=== PATIENT | male | born 1950 | race Caucasian/White ===

== ENCOUNTER → 2024-01-17 | Outpatient (CLI) | payer MEDICARE, SELFPAY | END | disposition home or self-care (01) | PROVIDERS: PCP Family Medicine; Referring Provider Podiatrist; Visit Provider Podiatrist | DX: R20.2 Paresthesia of skin (principal) | CPT/HCPCS: 95886; 95911 ==

== ENCOUNTER 2024-11-20 12:00 | Day surgery (SDC) | payer MEDICARE, SELFPAY ==
--- NOTE | 2024-11-18 14:14 | PAT.ANE_ITS ---
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 When Was Last Pacemaker Check QUESTION #4 FULL TEXT: You/Your Family Experience fever (hyperthermia) with Anesthesia Last Oral Intake Last Oral intake: Last Oral Intake NPO since Meds taken in AM with sips of water? Meds patient instructed to take am of surgery PONV PONV - reservations manager: PONV - reservations manager Female No 11/18/24 11:16 HX of Motion Sickness No 11/18/24 11:16 HX of N/V After Surgery No 11/18/24 11:16 Non-Smoker Yes 11/18/24 11:16 Duration of Surgery greater No 11/18/24 11:16 than 60 minutes Number of Risk Factors 1 11/18/24 11:16 PONV Score Low Risk 11/18/24 11:16 Height & Weight Height & Weight: Anesthesia: Height & Weight Height 5 ft 10 in 06/07/24 10:33 Respiratory Assessment Respiratory Assessment - reservations manager: Respiratory Tract Infection Hx - reservations manager Hx Respiratory Tract Infection No 11/18/24 11:16 STOP Sleep Apnea STOP Sleep Apnea - reservations manager: STOP Sleep Apnea - reservations manager Hx Hypertension No 11/18/24 11:16 Hx Sleep Apnea No 11/18/24 11:16 CPAP BIPAP Do you snore loudly (louder No 11/18/24 11:16 than talking or can be heard Do you often feel tired/ No 11/18/24 11:16 fatigued/ sleepy during daytime? Has anyone observed you stop No 11/18/24 11:16 breathing during sleep? STOP Results Negative 11/18/24 11:16 QUESTION #5 FULL TEXT : Do you snore loudly (louder than talking or can be heard through closed doors)? 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 Specify any problems Hx of Preganancy in last 3 N/A 11/18/24 11:16 Months Nurse Filling Out Transfusion VCHRISTIN 11/18/24 11:16 & Questions: Date: 11/18/24 11/18/24 11:16 Time: 11:17 11/18/24 11:16 Patient unable to answer at this time (ie. confused, unrespo /Reproduction History /Reproductive History - reservations manager: /Reproductive Hx- reservations manager Hx Now No 11/18/24 11:16 Gestational Age (in weeks): EDC: Hx Hx Para Hx Section SAB No 11/18/24 11:16 [facility] Medical History (Updated 11/18/24 @ 11:16 by Claire Whitt) Wears glasses Cancer Depression Alcohol use Thyroid disease Arthritis High cholesterol Difficulty swallowing Former smoker History of pain when walking History of echocardiogram History of stress test Melanoma Neuropathy Home Medications ?Medication ?Instructions ?Recorded ?Last Taken ?Type duloxetine 30 mg capsule,delayed 30 mg PO BID 06/07/24 Unknown History release ezetimibe 10 mg tablet 10 mg PO QDAY 06/07/24 Unkno wn History levothyroxine 50 mcg tablet 50 mcg PO QDAY 06/07/24 Un known History tramadol 50 mg tablet 50 mg PO Q4-6H PRN pain 05/12 11/04 Unknown History etodolac 500 mg tablet 500 mg PO BID PRN pain 11/18 Unknown History latanoprost 0.005 % eye drops 1 drp ophthalmic (eye) D AILY 11/18/24 Unknown History Allergy/AdvReac Type Severity Reaction Status Date / Time No Known Allergies Allergy Verified 11/18/24 11:03 Family History Mother No problems noted. Father Cancer Throat cancer Grandmother No problems noted. Grandfather No problems noted. Surgical History (Updated 11/18/24 @ 11:16 by Claire Whitt) Hx of tonsillectomy H/O lateral meniscus repair of right knee History of total right hip replacement Social History Smoking Status: Former smoker Smokeless tobacco user: chewing tobacco alcohol intake: current alcohol intake frequency: holidays/special occasions only Audit: Pertinent Findings Pertinent Findings Stress test pertinent findings: Stress test 12/05/2023. Nuclear stress test showed no conclusive evidence of reversible ischemia or infarct. Calculated EF is 57% with normal wall motion Recommendation Anesthesia Recommendation Anesthesia recommendation: OPTIMIZED for anesthesia
[2024-11-20] VITALS (9 sets, daily range): BP systolic 80–142; BP diastolic 56–91; PULSE 59–68; RESP 16–17; TEMP 36.3–36.6; O2SAT 96–99; BMI 30.4
[2024-11-20] MEDS: Lactated Ringers 1,000 ML 15 ML IV (12:36)
--- NOTE | 2024-11-20 12:49 | PRE.ANES_ITS ---
ASA Classification* ASA Classification ASA Classification: 2 Assessment & Plan Anesthesia* Anesthesia Assessment Anesthesia Assessment: Discussed sedation and/or anesthesia options, risks, benefits, and alternatives with patient/parents/legal guardian/POA. Questions invited. The patient/parents/legal guardian/POA seems to understand and agrees to proceed with anesthesia plan. Reviewed the physical assessment, medical history, allergy history and patient home medications list prior to surgery/procedure/anesthetic and documented any changes. Performed airway and anesthesia risk assessments. 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 When Was Last Pacemaker Check QUESTION #4 FULL TEXT: You/Your Family Experience fever (hyperthermia) with Anesthesia Last Oral Intake Last Oral intake: Last Oral Intake NPO since 07:00 11/20/24 12:36 Meds taken in AM with sips of No 11/20/24 12:36 water? Meds patient instructed to take am of surgery PONV PONV - enhanced environmental operator: PONV - enhanced environmental operator Female No 11/18/24 11:16 HX of Motion Sickness No 11/18/24 11:16 HX of N/V After Surgery No 11/18/24 11:16 Non-Smoker Yes 11/18/24 11:16 Duration of Surgery greater No 11/18/24 11:16 than 60 minutes Number of Risk Factors 1 11/18/24 11:16 PONV Score Low Risk 11/18/24 11:16 Height & Weight Height & Weight: Anesthesia: Height & Weight Height 5 ft 11 in 11/20/24 12:36 Weight: 99 kg 11/20/24 12:36 Body Mass Index (BMI) 30.4 11/20/24 12:36 Respiratory Assessment Respiratory Assessment - enhanced environmental operator: Respiratory Tract Infection Hx - enhanced environmental operator Hx Respiratory Tract Infection No 11/18/24 11:16 STOP Sleep Apnea STOP Sleep Apnea - enhanced environmental operator: STOP Sleep Apnea - enhanced environmental operator Hx Hypertension No 11/18/24 11:16 Hx Sleep Apnea No 11/18/24 11:16 CPAP BIPAP Do you snore loudly (louder No 11/18/24 11:16 than talking or can be heard Do you often feel tired/ No 11/18/24 11:16 fatigued/ sleepy during daytime? Has anyone observed you stop No 11/18/24 11:16 breathing during sleep? STOP Results Negative 11/18/24 11:16 QUESTION #5 FULL TEXT : Do you snore loudly (louder than talking or can be heard through closed doors)? Tobacco Use History Tobacco Use History - enhanced environmental operator: Tobacco Use History - enhanced environmental operator Tobacco Use Smoking Status Former smoker 11/18/24 11:16 Hx Tobacco Use No 11/18/24 11:16 Years Smoking Packs Smoked per Day Smoking Cessation Date was No - quit smoking greater 11/18/24 11:16 within the last 15 years than 15 years ago Hx Smoking Cessation Date Hx Smoking Cessation Counseling Hematologic Medial History Hematologic Hx - enhanced environmental operator: Hematologic Medical Hx - supervisor stone Hx of Blood Transfusion No 11/18/24 11:16 Hx of Transfusion in last 3 No 11/18/24 11:16 Months Date of Last Transfusion (if within last 3 months) Ever experience any problems No 11/18/24 11:16 with transfusion(s)? Specify any problems Hx of Preganancy in last 3 N/A 11/18/24 11:16 Months Nurse Filling Out Transfusion VCHRISTIN 11/18/24 11:16 & Questions: Date: 11/18/24 11/18/24 11:16 Time: 11:17 11/18/24 11:16 Patient unable to answer at this time (ie. confused, unrespo /Reproduction History /Reproductive History - enhanced environmental operator: /Reproductive Hx- enhanced environmental operator Hx Now No 11/18/24 11:16 Gestational Age (in weeks): EDC: Hx Hx Para Hx Section SAB No 11/18/24 11:16 Active Medications Active Medications: Current Medications Generic Name Dose Route Start Last Admin Trade Name Freq PRN Reason Stop Dose Admin Lactated Ringer's 1,000 mls @ 15 mls/hr 11/20/24 12:15 11/20/24 12:36 IV 15 mls/hr .Q48H YODRY Administration PFSH Medical History Wears glasses Cancer Depression Alcohol use Thyroid disease Arthritis High cholesterol Difficulty swallowing Former smoker History of pain when walking History of echocardiogram History of stress test Melanoma Neuropathy Home Medications ?Medication ?Instructions ?Recorded ?Last Taken ?Type duloxetine 30 mg capsule,delayed 30 mg PO BID 06/07/24 11/19/24 History release ezetimibe 10 mg tablet 10 mg PO QDAY 06/07/2411/19 History levothyroxine 50 mcg tablet 50 mcg PO QDAY 06/07/24 History tramadol 50 mg tablet 50 mg PO Q4-6H PRN pain 05/1211/20/24 History etodolac 500 mg tablet 500 mg PO BID PRN pain 11/18 Unknown History latanoprost 0.005 % eye drops 1 drp ophthalmic (eye) D AILY 11/18/24 11/19/24 History Allergy/AdvReac Type Severity Reaction Status Date / Time No Known Allergies Allergy Verified 11/20/24 12:35 Family History Mother No problems noted. Father Cancer Throat cancer Grandmother No problems noted. Grandfather No problems noted. Surgical History Hx of tonsillectomy H/O lateral meniscus repair of right knee History of total right hip replacement Social History Smoking Status: Former smoker Smokeless tobacco user: chewing tobacco alcohol intake: current alcohol intake frequency: holidays/special occasions only Review of Systems (Anesthesia) ROS Narrative System reviewed and no additional complaints, except as documented.
--- NOTE | 2024-11-20 13:12 | PCM.HP.STD ---
HPI - General General Date of Admission: 11/20/24 Date of Service: 11/20/24 HPI Narrative FRANK OLMSTEAD, is a 74 M who presentsDAVIMehnaz OLMSTEAD, is a 74 M who presents to the office today for initial consult. Pt reports trouble swallowing. Has had 3 episodes this past summer. States he had a scope with Dr. Delgado Helm 2-3 years ago and a spot was treated in his stomach. Says feed gets stuck and then will have to vomit to get it out. Mostly with meats, and fried foods. Denies heartburn or nausea. BMs are more constipated due to Tramadol use. This has been worsening over the past six months. He describes a sensation of food getting stuck in his chest, typically a few seconds after swallowing. The issue initially occurred with larger, curtain drier pieces of food, such as steak and bread. However, he reports it is now happening with softer foods like chicken and rice. He has not experienced any issues swallowing liquids. Associated symptoms: Occasional regurgitation of undigested food. Has had to chew his food more thoroughly and eat more slowly. Reports an unintentional weight loss of approximately 15 pounds over the past six months. Denies heartburn, chest pain, or hoarseness. [facility] Medical History (Updated 11/20/24 @ 13:[address] Glover Friend, DO) Wears glasses Cancer Depression Alcohol use Thyroid disease Arthritis High cholesterol Difficulty swallowing Former smoker History of pain when walking History of echocardiogram History of stress test Melanoma Neuropathy Home Medications ?Medication ?Instructions ?Recorded ?Last Taken ?Type duloxetine 30 mg capsule,delayed 30 mg PO BID 06/07/24 11/19/24 History release ezetimibe 10 mg tablet 10 mg PO QDAY 06/07/24 11/19/24 History levothyroxine 50 mcg tablet 50 mcg PO QDAY 06/07/24 11/19/24 History tramadol 50 mg tablet 50 mg PO Q4-6H PRN pain 06/07/24 11/20/24 History etodolac 500 mg tablet 500 mg PO BID PRN pain 11/18/24 Unknown History latanoprost 0.005 % eye drops 1 drp ophthalmic (eye) DAILY 11/18/24 11/19/24 History Allergy/AdvReac Type Severity Reaction Status Date / Time No Known Allergies Allergy Verified 11/20/24 12:35 Family History Mother No problems noted. Father Cancer Throat cancer Grandmother No problems noted. Grandfather No problems noted. Surgical History Hx of tonsillectomy H/O lateral meniscus repair of right knee History of total right hip replacement Social History Smoking Status: Former smoker Smokeless tobacco user: chewing tobacco alcohol intake: current alcohol intake frequency: holidays/special occasions only ROS Constitutional Constitutional: Denies fatigue, fever(s), poor appetite, weight gain or weight loss Gastrointestinal Gastrointestinal: Denies belching, bloating, change in bowel habits, change in stool character, chewing difficulty, coffee ground emesis, constipation, cramping, diarrhea, dyspepsia, dysphagia, early satiety, excessive flatus, fecal incontinence, heartburn, hematemesis, hematochezia, hemorrhoids, loose stools, melena, nausea, odynophagia, rectal bleeding, tenesmus, vomiting or weight changes Vital Signs Vital Signs Vital Signs: 11/20/24 12:36 11/20/24 12:36 11/20/24 12:49 Temperature 98 F 98 F Temperature Source Temporal Pulse Rate 64 64 Respiratory Rate 17 17 Respiratory Pattern Normal Blood Pressure 142/78 H 142/78 H Blood Pressure Mean 99 Blood Pressure Source Monitor Blood Pressure Position Semi-Fowlers Blood Pressure Location Left Arm Pulse Ox 99 99 Oxygen Delivery Method Room Air Room Air Weight Weight: 218 lb 4.122 oz Body Mass Index (BMI) 30.4 Physical Exam Const alert, oriented x3, no apparent distress and healthy appearing General Appearance: cooperative GI normal to inspection, nondistended, normoactive bowel sounds, soft to palpation, non-tender and non-distended Percussion: normal to percussion Rectal Exam: deferred Assessment & Plan Assessment/Plan (1) Difficulty swallowing: PLAN: Assessment and Plan Assessment and Plan Orders: Orders EGD 11/20/24 R13.10 - Dysphagia, unspecified Assessment 1. Esophageal Dysphagia to Solids:?The patient's history is most consistent with a mechanical obstruction of the esophagus, given the specific difficulty with solids and the progressive nature of the symptoms. The age, progressive symptoms, and unintentional weight loss raise a red flag for esophageal malignancy. Other potential causes include:? Peptic stricture:?Typically a complication of chronic gastroesophageal reflux disease (GERD), which the patient denies, but could be silent. Esophageal web or ring (e.g., Schatzki ring):?Can cause intermittent solid-food dysphagia, but the patient's symptoms are progressive. Eosinophilic esophagitis:?An inflammatory condition often associated with dysphagia and food impaction. Motility disorder:?Less likely, as pure motility disorders typically cause dysphagia to both solids and liquids from the onset.? Plan Diagnostic: Urgent Esophagogastroduodenoscopy (EGD):?Essential to directly visualize the esophagus, identify any structural abnormalities (strictures, tumors, rings), and obtain biopsies from suspicious areas. Given the patient's age and weight loss, this is the priority diagnostic study. Blood work:?Complete blood count (CBC) and chemistry panel to evaluate nutritional status.? Therapeutic: Dietary modifications:?The patient should continue to eat slowly, chew food thoroughly, and avoid tough or dry foods that exacerbate symptoms. Nutritional support:?Consultation with a dietitian may be beneficial to ensure adequate nutrition and prevent further weight loss while the patient awaits a diagnosis.
--- NOTE | 2024-11-20 13:30 | EGD_PTH ---
PATIENT: FRANK OLMSTEAD LOC: EN U#:[id number] AGE/SX: 74/M ROOM: RE11/20/[address]: Dr. Adalberto Jones DO : 1950 BED: DIS: 11/20/2024 SPEC #: [id number] RECD: 11/20/24 14:45 STATUS: PADMINI REAnnika #: [id number] NATE: 11/20/24 13:[address]: Adalberto Jones DEPT: SURGICAL PATHOLOGY RECD BY: Ciaran Valladares ENTERED: 11/20/24 15:19 SP TYPE: EGD BIOPSY TASHA DR: Dr. Woodrow Silva MD Tissues: A - Esophagus, NOS Procedures: Surgery Specimen Level IV HEADER OPERATION: EGD with biopsies and dilation PRE-OP DIAGNOSIS: Difficulty swallowing TISSUE SUBMITTED: A- Distal esophagus biopsy MICROSCOPIC DIAGNOSIS A. Distal esophagus, biopsy: - Squamous mucosa with reactive changes and up to 15 eosinophils per high power field. - Few detached fragments of fibrinopurulent debris suggestive of ulceration. - Columnar mucosa negative for goblet cell metaplasia - Negative for dysplasia. MICROSCOPIC DESCRIPTION Slides are reviewed. GROSS DESCRIPTION A. Received in fixative is one container labeled with the patient's name and designated Distal esophagus biopsy. The specimen consists of multiple irregular fragments of light brown soft tissue that in aggregate measure 1.6 x 0.4 x 0.1 cm. The specimen is totally submitted in one cassette. DC 11/20/2024 CPT:02451
--- NOTE | 2024-11-20 14:00 | OP.EGD_ITS ---
Patient Name: Angelo Mata Procedure Date: 11/20/2024 1:40 PM Date of : 1950 Age: 74 Procedure: Upper GI endoscopy Indications: Dysphagia Providers: Adalberto Jones DO Referring MD: Woodrow Silva Medicines: Monitored Anesthesia Care Patient Profile: This is a 74 year old male. Refer to note in patient chart for documentation of history and physical. Patient has symptoms of chronic dysphagia and dysphagia with solids. Complications: No immediate complications. Procedure: Pre-Anesthesia Assessment: - Prior to the procedure, a History and Physical was performed, and patient medications and allergies were reviewed. The patient is competent. The risks and benefits of the procedure and the sedation options and risks were discussed with the patient. All questions were answered and informed consent was obtained. Patient identification and proposed procedure were verified by the physician. Mental Status Examination: alert and oriented. Airway Examination: normal oropharyngeal airway and neck mobility. Respiratory Examination: clear to auscultation. CV Examination: normal. Prophylactic Antibiotics: The patient does not require prophylactic antibiotics. Prior Anticoagulants: The patient has taken no anticoagulant or antiplatelet agents except for NSAID medication. ASA Grade Assessment: II - A patient with mild systemic disease. After reviewing the risks and benefits, the patient was deemed in satisfactory condition to undergo the procedure. The anesthesia plan was to use monitored anesthesia care (MAC). Immediately prior to administration of medications, the patient was re-assessed for adequacy to receive sedatives. The heart rate, respiratory rate, oxygen saturations, blood pressure, adequacy of pulmonary ventilation, and response to care were monitored throughout the procedure. The physical status of the patient was re-assessed after the procedure. After obtaining informed consent, the endoscope was passed under direct vision. Throughout the procedure, the patient's blood pressure, pulse, and oxygen saturations were monitored continuously. The Endoscope was introduced through the mouth, and advanced to the second part of duodenum. The upper GI endoscopy was accomplished without difficulty. The patient tolerated the procedure well. Scope In: 1:48:48 PM Scope Out: 1:53:50 PM Total Procedure Duration Time 0 hours 5 minutes 2 seconds Findings: LA Grade B (one or more mucosal breaks greater than 5 mm, not extending between the tops of two mucosal folds) esophagitis with no bleeding was found 38 to 41 cm from the incisors. Biopsies were taken with a cold forceps for histology. Verification of patient identification for the specimen was done. Estimated blood loss was minimal. A moderate Schatzki ring was found at the gastroesophageal junction. A guidewire was placed and the scope was withdrawn. Dilation was performed with a Savary dilator with no resistance at 60 Fr. The dilation site was examined and showed moderate improvement in luminal narrowing. Estimated blood loss was minimal. A small hiatal hernia was present. No gross lesions were noted in the entire examined stomach. The exam of the duodenum was otherwise normal. Impression: - LA Grade B reflux esophagitis with no bleeding. Biopsied. - Moderate Schatzki ring. Dilated. - Small hiatal hernia. - No gross lesions in the entire stomach. Recommendation: - Discharge patient to home. - Resume previous diet. - Continue present medications. - Await pathology results. - Full liquid diet today. - Use Protonix (pantoprazole) 40 mg PO BID. Procedure Code(s): --- Professional --- 30549, Esophagogastroduodenoscopy, flexible, transoral; with insertion of guide wire followed by passage of dilator(s) through esophagus over guide wire 37794, 59,51, Esophagogastroduodenoscopy, flexible, transoral; with biopsy, single or multiple CPT copyright 2021 [employer]. All rights reserved. The codes documented in this report are preliminary and upon window installer review may be revised to meet current compliance requirements. Adalberto Jones DO 11/20/2024 1:59:29 PM This report has been signed electronically. Number of Addenda: 0 Note Initiated On: 11/20/2024 1:40 PM
--- NOTE | 2024-11-20 14:00 | OP.PROVAT_ITS ---
11/20/2024 Woodrow Silva Re : Upper GI endoscopy procedure for Angelo Geib Dear Ricardo This procedure was performed on Wednesday, November 20, 2024. My impressions and recommendations are as follows: Impressions : - LA Grade B reflux esophagitis with no bleeding. Biopsied. - Moderate Schatzki ring. Dilated. - Small hiatal hernia. - No gross lesions in the entire stomach. Recommendations : - Discharge patient to home. - Resume previous diet. - Continue present medications. - Await pathology results. - Full liquid diet today. - Use Protonix (pantoprazole) 40 mg PO BID. My findings are described in the full procedure note, which is enclosed. If I can be of further assistance, please feel free to contact me at . Sincerely, Adalberto Friend, 11/20/2024 1:59:29 PM This report has been signed electronically.
--- NOTE | 2024-11-20 14:02 | PCM.POST.ANE ---
Anesthesia: Postop Eval I Current Vital Signs Temperature: 97.6 F Pulse Rate: 64 Blood Pressure: 83/56 Respiratory Rate: 16 Pulse Ox: 99 Oxygen Delivery Method: Room Air Assessment Airway patent: Yes Spontaneous unlabored respirations: Yes Mental status: Asleep nausea: No Vomiting: No Anesthesia Complication: No Fluid Hydration Crystalloid volume administer (ml): 300 Total IV fluid infused: 300 Progress Note Anesthesia document: Postop Eval 1 completed: Yes
[2024-11-20] MEDS: Pantoprazole Sodium 40 MG in 0.9% Normal Saline (100mL MB+) 100 ML 300 MG IV (14:19)
--- NOTE | 2024-11-20 14:36 | PCM.POSTANE2 ---
Anesthesia Postop Eval I Sum Postop Eval Completion status Anesthesia document: Postop Eval 1 completed: Yes Anesthesia Postop Eval I Summary Anesthesia Postop Eval I Summary: Anesthesia Postop Eval I: Assessment Summary Airway patent Yes 11/20/24 14:03 [email or web address] Spontaneous unlabored Yes 11/20/24 14:03 [email or web address] respirations Mental status Asleep 11/20/24 14:03 [email or web address] nausea No 11/20/24 14:03 [email or web address] Vomiting No 11/20/24 14:03 [email or web address] Anesthesia Postop Eval I: Fluid Summary Crystalloid volume administer 300 11/20/24 14:03 [email or web address] (ml) Colloids volume administered ( ml) Blood Product volume administered (ml) Total IV fluid infused 300 11/20/24 14:03 [email or web address] Anesthesia Postop Eval I: Summary Notes Anesthesia Complication No 11/20/24 14:03 [email or web address] Anesthesia Complication Comment: Post-operative progress note Anesthesia: Postop Eval II Evaluation Mental status: Awake and Calm Pain Level: 1 nausea: No Vomiting: No Complications Anesthesia Complication: No
== END 2024-11-20 14:55 | disposition home or self-care (01) ==
LOC: EN 12:03 → AC 12:04
PROVIDERS: PCP Family Medicine; Referring Provider Family Medicine; Visit Provider Internal Medicine Gastroenterology
PROC: 0DJ08ZZ Inspection of Upper Intestinal Tract, Via Natural or Artificial Opening Endoscopic (ICD-10-PCS; CPT 43235; principal; 2024-11-20 13:25)
DX: K21.00 Gastro-esophageal reflux disease with esophagitis, without bleeding (principal); Z79.899 Other long term (current) drug therapy; Z79.890 Hormone replacement therapy; E78.00 Pure hypercholesterolemia, unspecified; R63.4 Abnormal weight loss; K44.9 Diaphragmatic hernia without obstruction or gangrene; F17.220 Nicotine dependence, chewing tobacco, uncomplicated; K22.2 Esophageal obstruction; E07.9 Disorder of thyroid, unspecified
CPT/HCPCS: 43239; 43248; 88305; C1769; J2405